=== PATIENT | female | born 1990 | race Two or more races ===

== ENCOUNTER 2018-12-10 11:01 | Emergency (ER) | payer MEDICAID ==
[2018-12-10 11:16] VITALS: BP 119/73
[2018-12-10] MEDS ORDERED: LIDOCAINE 2% VISCOUS SOLN 20 ML UDCUP PO ONE (12:06)
[2018-12-10] MEDS ORDERED: PROCHLORPERAZINE MALEATE 10 MG TABLET PO ONE (12:06)
[2018-12-10] MEDS ORDERED: IBUPROFEN 600 MG TABLET PO ONE (12:06)
[2018-12-10] MEDS ORDERED: PENICILLIN V POTASSIUM 500 MG TABLET PO ONE (12:06)
--- NOTE | 2018-12-10 12:18 | ER Document Report ---
HPI - HPI Time Seen by Provider: 12/10/18 11:55 Pain Level: 5 Notes: Patient is a 28-year-old female who presents to the emergency department with chief complaint of dental pain and headache. Patient reports fractured teeth on the right lower and left lower sides of her mouth, states this occurred in April. Patient also reports history of migraines. Patient states the pain in her teeth is making her have more frequent migraines. Denies any fevers. - REPRODUCTIVE Reproductive: DENIES: : - DERM Skin Color: Normal Past Medical History - General Information source: Patient - Social History Smoking Status: Current Every Day Smoker Frequency of alcohol use: Occasional Drug Abuse: None Family History: Reviewed & Not Pertinent Patient has suicidal ideation: No Patient has homicidal ideation: No Neurological Medical History: Reports: Hx Migraine Renal/ Medical History: Reports: Hx Kidney Stones. Denies: Hx Peritoneal Dialysis Past Surgical History: Reports: Hx Tonsillectomy - Immunizations Hx Diphtheria, Pertussis, Tetanus Vaccination: Yes Vertical Provider Document - CONSTITUTIONAL Notes: PHYSICAL EXAMINATION: GENERAL: Well-appearing, well-nourished and in no acute distress. HEAD: Atraumatic, normocephalic. EYES: Pupils equal round extraocular movements intact, conjunctiva are normal. ENT: Nares patent, poor dentition noted throughout. Specifically tooth #30, 31, 19 and 18 are completely rotted out with surrounding erythema. No drainable abscess identified. NECK: Normal range of motion LUNGS: No respiratory distress Musculoskeletal: Normal range of motion NEUROLOGICAL: Normal speech, normal gait. PSYCH: Normal mood, normal affect. SKIN: Warm, Dry, normal turgor, no rashes or lesions noted. - INFECTION CONTROL TRAVEL OUTSIDE OF THE [place] IN LAST 30 DAYS: No Course - Re-evaluation Re-evalutation: Patient appears to have a dental infection. There is no drainable abscess. Patient will be started on penicillin VK and discharged home in stable condition. - Vital Signs Vital signs: Temp Pulse Resp BP Pulse Ox 98.2 F 126 H 18 119/73 98 12/10/18 11:14 12/10/18 11:14 12/10/18 11:14 12/10/18 11:14 12/10/18 11:14 Discharge - Discharge Clinical Impression: Dental infection Headache Qualifiers: Headache type: unspecified Headache chronicity pattern: chronic headache Intractability: not intractable Qualified Code(s): R51 - Headache Condition: Stable Disposition: HOME, SELF-CARE Additional Instructions: You have been seen for dental pain. It is very important that you follow-up with a dentist for definitive care. Please return if you develop fever greater than 101, swelling in your face, vomiting, difficulty breathing or swallowing, or any other symptoms that are concerning to you. For pain you should take ibuprofen 800 mg every 8 hours as needed. [facility] [address] Prescriptions: Penicillin V Potassium [Penicillin Vk 500 mg Tablet] 500 mg PO BID #20 tablet Referrals: GILBERTO TAFOYA MD [ACTIVE STAFF] - Follow up as needed
== END 2018-12-10 12:24 | disposition home or self-care (01) ==
LOC: ER 11:01
DX: K04.7 Periapical abscess without sinus (principal); R51 Headache; K08.89 Other specified disorders of teeth and supporting structures; Z86.69 Personal history of other diseases of the nervous system and sense organs; F17.200 Nicotine dependence, unspecified, uncomplicated
CPT/HCPCS: 99283; J3490 ×3; S0183

== ENCOUNTER 2018-12-20 09:01 | Emergency (ER) | payer SELFPAY ==
--- NOTE | 2018-12-20 10:28 | RADIOLOGY REPORT (SQ) ---
EXAM DESCRIPTION: KNEE RIGHT 4 VIEWS COMPLETED DATE/TIME: 12/20/2018 10:14 am REASON FOR STUDY: pain COMPARISON: None. NUMBER OF VIEWS: Four views. TECHNIQUE: AP, lateral, and both oblique radiographic images acquired of the right knee. LIMITATIONS: None. FINDINGS: MINERALIZATION: Normal. BONES: No acute fracture or dislocation. No worrisome bone lesions. JOINT: Moderate joint effusion is present. SOFT TISSUES: No soft tissue swelling. No radio-opaque foreign body. OTHER: No other significant finding. IMPRESSION: Joint effusion with no osseous abnormality. If there is concern for internal derangemen t, consider MRI. TECHNICAL DOCUMENTATION: JOB ID: [id number] [employer]- All Rights Reserved Reading location - IP/workstation name: [email or web address]
[2018-12-20] MEDS ORDERED: ACETAMINOPHEN 325 MG TABLET PO ONE (10:47)
--- NOTE | 2018-12-20 10:52 | ER Document Report ---
HPI - HPI Patient complains to provider of: Right knee pain Time Seen by Provider: 12/20/18 09:34 Pain Level: 4 Context: Patient is a 28-year-old female presents to the emergency department with right knee pain and swelling. Patient states she feels as though she has had right knee pain and swelling intermittently for the last 2 weeks. She is denying any history of trauma or injury. Patient states for the last 2 days she has noticed that her knee has been increasing in size which is what prompts her visit to the emergency room. Patient states she typically is very active and if there is a chance that she did hurt her right knee patient cannot recall any obvious injuries. Patient's denying fever, redness, warmth to the right knee. Patient's denying any history of IV drug use. Past medical history: None Medications: None Allergies: None - REPRODUCTIVE Reproductive: DENIES: : - MUSCULOSKELETAL Musculoskeletal: REPORTS: Extremity pain Past Medical History - General Information source: Patient - Social History Smoking Status: Current Every Day Smoker Family History: Reviewed & Not Pertinent Patient has suicidal ideation: No Patient has homicidal ideation: No Neurological Medical History: Reports: Hx Migraine Renal/ Medical History: Reports: Hx Kidney Stones. Denies: Hx Peritoneal Dialysis Past Surgical History: Reports: Hx Tonsillectomy - Immunizations Hx Diphtheria, Pertussis, Tetanus Vaccination: Yes Vertical Provider Document - CONSTITUTIONAL Agree With Documented VS: Yes Notes: GENERAL: Alert, interacts well. No acute distress. HEAD: Normocephalic, atraumatic. EYES: Pupils equal, round, and reactive to light. Extraocular movements intact. ENT: Oral mucosa moist, tongue midline. NECK: Full range of motion. Supple. Trachea midline. LUNGS: Clear to auscultation bilaterally, no wheezes, rales, or rhonchi. No respiratory distress. HEART: Regular rate and rhythm. No murmur ABDOMEN: Soft, non-tender. Non-distended. Bowel sounds present in all 4 quadrants. EXTREMITIES: Moves all 4 extremities spontaneously. normal radial and dorsalis pedis pulses bilaterally. No cyanosis. Swelling noted right knee, skin is non- erythematous, non-warm. Anterior drawer reveals no pain, valgus and varus maneuvers elicit pain equally. 5 out of 5 strength all 4 extremities. BACK: no cervical, thoracic, lumbar midline tenderness. No saddle anesthesia, normal distal neurovascular exam. NEUROLOGICAL: Alert and oriented x3. Normal speech. cranial nerves II through XII grossly intact PSYCH: Normal affect, normal mood. SKIN: Warm, dry, normal turgor. No rashes or lesions noted. - INFECTION CONTROL TRAVEL OUTSIDE OF THE [place] IN LAST 30 DAYS: No Course - Re-evaluation Re-evalutation: 12/20/18 10:49 Patient's x-ray reveals signs of an effusion. Patient's skin continues to be nonerythematous and non-warm. I do not feel as though this is an infectious process. Patient is without fever. Knee immobilizer placed, patient states she does not have insurance, phone numbers for [facility] in [facility] will be provided. Close return precautions discussed. Patient stable for discharge. - Vital Signs Vital signs: Temp Pulse Resp BP Pulse Ox 98.3 F 105 H 16 115/67 98 12/20/18 09:13 12/20/18 09:13 12/20/18 09:13 12/20/18 09:13 12/20/18 09:13 Discharge - Discharge Clinical Impression: Right knee pain Qualifiers: Chronicity: acute Qualified Code(s): M25.561 - Pain in right knee Condition: Stable Disposition: HOME, SELF-CARE Instructions: Use of Crutches ([facility]), Suspected Internal Knee Injury ([facility]), Ice & Elevation ([facility]), Knee Immobilizing Splint ([facility]), Sprained Knee ([facility]) Additional Instructions: As we discussed your knee x-ray reveals no signs of fractures. It does reveal signs of inflammation. Due to the skin being normal in color, not red, not warm to touch I do not feel as though this is an infectious process. Should the skin around her knee gets warm to touch, red, or you have any other concerning symptoms please return to the emergency room immediately. Otherwise please follow-up with phone numbers provided in this packet. Please take [id number] Tylenol Motrin for generalized pain. Forms: Return to Work Referrals: [facility] [Provider Group] - Follow up as needed [facility] [Provider Group] - Follow up as needed
[2018-12-20 11:04] VITALS: BP 113/81
== END 2018-12-20 11:00 | disposition home or self-care (01) ==
LOC: ER 09:01
DX: M25.561 Pain in right knee (principal); F17.200 Nicotine dependence, unspecified, uncomplicated; Z87.442 Personal history of urinary calculi
CPT/HCPCS: 99283; 73564; L1830

== ENCOUNTER 2019-09-09 18:45 | Inpatient (IN) | payer SELFPAY ==
[2019-09-09 19:19] LABS: APPEARANCE,URINE CLEAR; BILIRUBIN,URINE NEGATIVE (NEGATIVE); COLOR,URINE YELLOW; GLUCOSE, URINE NEGATIVE (NEGATIVE); KETONES,URINE NEGATIVE (NEGATIVE); LEUKOCYTE ESTERASE,URINE NEGATIVE (NEGATIVE); NITRITE,URINE NEGATIVE (NEGATIVE); PROTEIN,URINE 100 mg/dL (NEGATIVE); UROBILINOGEN,URINE NEGATIVE mg/dL (<2.0)
[2019-09-09 19:20] LABS: BACTERIA (WET MOUNT) 4+ BACTERIA SEEN; EPITHELIALS (WET MOUNT) 4+ EPITHELIALS SEEN; RBCS (WET MOUNT) FEW RBCS SEEN; T.VAGINALIS (WET MOUNT) NO TRICHOMONAS SEEN; WBCS (WET MOUNT) 4+ WBCS SEEN; YEAST (WET MOUNT) NO YEAST SEEN
[2019-09-09 19:34] LABS: URINE AMPHETAMINES SCREEN NEGATIVE; URINE BARBITURATES SCREEN NEGATIVE; URINE BENZODIAZEPINES SCREEN NEGATIVE; URINE COCAINE SCREEN NEGATIVE; URINE METHADONE SCREEN NEGATIVE; URINE PHENCYCLIDINE SCREEN NEGATIVE
[2019-09-09] MEDS ORDERED: MAGNESIUM SULFATE 20 GM/500 ML RTUINJ IV PRN (19:39)
[2019-09-09] MEDS ORDERED: RINGERS SOLUTION,LACTATED 1,000 ML IV PRN (19:40)
[2019-09-09 19:43] LABS: ABSOLUTE LYMPHOCYTES (AUTO) 2.4 10^3/uL (0.5-4.7); ABSOLUTE MONOCYTES (AUTO) 0.7 10^3/uL (0.1-1.4); ABSOLUTE NEUT (AUTO) 10.6 10^3/uL (1.7-8.2); BASOPHILS % (AUTO) 0.3 % (0-2); EOSINOPHILS % (AUTO) 0.3 % (0-6); HEMATOCRIT 36.9 % (36.0-47.0); HEMOGLOBIN 12.6 g/dL (12.0-15.5); LYMPHOCYTES % (AUTO) 17.3 % (13-45); MEAN CORPUSCULAR HEMOGLOBIN 29.4 pg (27.0-33.4); MEAN CORPUSCULAR HGB CONC 34.1 g/dL (32.0-36.0); MEAN CORPUSCULAR VOLUME 86 fl (80-97); MONOCYTES % (AUTO) 5.4 % (3-13); PLATELET COUNT 265 10^3/uL (150-450); RED BLOOD COUNT 4.28 10^6/uL (3.72-5.28); RED CELL DISTRIBUTION WIDTH 14.6 % (11.5-14.0); SEGMENTED NEUTROPHILS % (AUTO) 76.7 % (42-78); TOTAL CELLS COUNTED % (AUTO) 100 %; WHITE BLOOD COUNT 13.8 10^3/uL (4.0-10.5)
[2019-09-09] MEDS ORDERED: MAGNESIUM SULFATE/D5W 1 GM/100 ML RTUPB IV SCH (19:45)
[2019-09-09 19:52] LABS: URINE MARIJUANA (THC) SCREEN UNCONFIRMED POSITIVE
[2019-09-09] MEDS ORDERED: TERBUTALINE SULFATE INJ/PF 1 MG/1 ML SDV ONE (19:53)
[2019-09-09] MEDS ORDERED: PENICILLIN G-K 5 MILLION UNIT VIAL ONE (19:53)
[2019-09-09] MEDS ORDERED: BETAMET ACET/BETAMET NA INJ 6 MG/1 ML ONE (19:55)
[2019-09-09] MEDS ORDERED: BETAMET ACET/BETAMET NA INJ 6 MG/1 ML IM ONE (20:00)
[2019-09-09] MEDS ORDERED: MAGNESIUM SULFATE 4 GM/100 ML RTUPB IV ONE ×2 (20:00)
[2019-09-09] MEDS ORDERED: RINGERS SOLUTION,LACTATED 1,000 ML IV ONE (20:00)
[2019-09-09] MEDS ORDERED: PENICILLIN G POTASSIUM 5,000,000 UNIT in DEXTROSE 5%-WATER 100 ML IV ONE (20:00)
[2019-09-09] MEDS ORDERED: LIDOCAINE 1% INJ-PF (10 MG/ML) 30 ML SDV ONE (20:06)
[2019-09-09] MEDS ORDERED: OXYTOCIN/NORMAL SALINE 20 UNIT/1,000 ML RTUINJ ONE (20:06)
[2019-09-09] MEDS ORDERED: MISOPROSTOL 0.2 MG TABLET ONE (20:06)
[2019-09-09] MEDS ORDERED: OXYTOCIN 10 UNIT/ML VIAL ONE (20:06)
[2019-09-09] MEDS ORDERED: EPHEDRINE SULFATE INJ 50 MG/1 ML AMPULE ONE (20:18)
--- NOTE | 2019-09-09 20:18 | Admission Physical ---
Datetime Report Generated by CPN: 09/09/2019 20:18 CURRENT ADMISSION Chief Complaint: Uterine Contractions; Suspected Ruptured Membranes Indication for Induction: Not Applicable Admit Impression : , Intrauterine ; Active Labor Admit Impression- Other: suspect ruptured membranes Admit Plan: Admit to Unit; Initiate Labor Protocol ALLERGIES Medication Allergies: No Medication Allergies: No Known Allergies (12/20/2018) Latex: No Latex Allergies OBSTETRICAL HISTORY EDC: 10/24/2019 00:00 : 5 Para: 2 Term: 2 SAB: 2 SEE RECORDS Alcohol: No Cocaine: No Other Illicit Drugs: No Cigarettes: Current Some Day Smoker. [id number] Cigarette Frequency: 5 - 10 per day Advised to Stop: Yes PHYSICAL EXAM General: Normal HEENT: Normal Neurologic: Normal Thyroid: Deferred Heart: Normal Lungs: Normal Breast: Deferred Back: Normal Abdomen: Normal Genitourinary Exam: Normal Extremities: Normal DTRs: Normal Pelvic Type: Adequate Vital Signs: Reviewed VAGINAL EXAM Dilatation: 5 Effacement: 80 Station: bb Contraction Comments: q 2-3 MEMBRANES Membranes: Intact FETUS A EGA: 33.4 Monitoring: External US FHR- Baseline: 125 Variability: Moderate 6-25bpm Accelerations: 15X15 Decelerations: None FHR Category: Category I Presentation: Vertex Admit Comment: 29yo at probable 33+4 by reported ANGELIQUE 10/24/2019 (she reports that was given to her by HD in [place] based on LMP). Pt was brought in by EMS and reported no prental care. SHe reports that she is homeless then later reported she lives with Aunt - story is changing. urban and regional planner placed due to no prental care and story is suspect. Pt checked by RN and 5cm/bb. Magnesium sulfate due to suspected 33wks and neuroprotection, Celestone given for FLM. Pt now in Hands and knees - cvx now /bb. US ordered to evaluate EGA. PCN for GBS prophy and no care labs done. Pt reports that she had a term IOL at 41wks and a PPROM at delivery at 30wks. Nursery and NICU personel notified. Anticipate . Bedside quick US by myself confirmed vertex presentation INFORMED CONSENT Informed Consent Obtained: Vaginal Delivery; Risks, Benefits and Alternatives Discussed Signature: with User ID: [email or web address]
[2019-09-09] MEDS ORDERED: FENTANYL/BUPIVACAINE/NS/PF 300 MCG/150 ML RTUINJ EPI ONE (20:19)
[2019-09-09] MEDS ORDERED: BUPIVACAINE HCL 0.25 % INJ/PF (2.5 MG/1 ML) 30 ML VIAL ONE (20:19)
[2019-09-09] MEDS ORDERED: MAGNESIUM SULFATE 20 GM/500 ML RTUINJ IV ONE (20:23)
[2019-09-09 20:43] LABS: CHLAM PCR DETECTED (NOT DETECT)
[2019-09-09] MEDS ORDERED: AZITHROMYCIN INJ 500 MG VIAL IV PRN (20:50)
[2019-09-09] MEDS ORDERED: AZITHROMYCIN INJ 500 MG VIAL IV ONE (20:50)
[2019-09-09] MEDS ORDERED: CEFTRIAXONE INJ 1000 MG VIAL ONE (20:51)
--- NOTE | 2019-09-09 21:00 | RADIOLOGY REPORT (SQ) ---
US LIMITED CLINICAL DATA: for dating, , no care. TECHNICAL DATA: Transabdominal limited OB ultrasound was obtained for a total of 25 images. FINDINGS: A single intrauterine is identified in a vertex presentation. A heart rate is measured at 145 bpm. The placenta is anterior, no previa or abruption. The amniotic fluid index measures 10.7 cm. The BPD gives an EGA of 35 weeks zero days, head circumference 34 weeks six days, abdominal circumference 35 weeks six days, and femur length 34 weeks three days. The estimated weight is 2633 g or 5 lbs. 13 oz. IMPRESSION: Single viable intrauterine in a vertex presentation with an anterior placenta, adequate amniotic fluid volume, EFW of 2633 g, and composite EGA by ultrasound of 35 weeks 0 days giving an EDC on 10/14/2019.
[2019-09-09] MEDS ORDERED: CEFTRIAXONE 1 GM/D5W RTU 1 GM/50 ML RTUPB IV ONE (21:30)
[2019-09-09 21:50] LABS: FREE T4 (FREE THYROXINE) 1.02 ng/dL (0.78-2.19)
[2019-09-09 21:51] LABS: FREE T3 2.42 pg/mL (2.77-5.27)
[2019-09-09] MEDS ORDERED: AZITHROMYCIN 500 MG in DEXTROSE 5%-WATER 250 ML IV ONE (22:00)
[2019-09-09] MEDS ORDERED: BENZOCAINE/MENTHOL AEROSOL SPRAY 56 ML TOP PRN (23:32)
[2019-09-09] MEDS ORDERED: PSEUDOEPHEDRINE HCL 30 MG TABLET PO PRN (23:32)
[2019-09-09] MEDS ORDERED: DIPHENHYDRAMINE HCL 25 MG CAPSULE PO PRN (23:32)
[2019-09-09] MEDS ORDERED: PROMETHAZINE HCL 25 MG TABLET PO PRN (23:32)
[2019-09-09] MEDS ORDERED: NA PHOS,M-B/NA PHOS,DI-BA (ADULT) 133 ML ENEMA PR PRN (23:32)
[2019-09-09] MEDS ORDERED: MISOPROSTOL 0.2 MG TABLET PR PRN (23:32)
[2019-09-09] MEDS ORDERED: ACETAMINOPHEN 325 MG TABLET PO PRN (23:32)
[2019-09-09] MEDS ORDERED: MEASLES,MUMPS&RUBELLA VACC/PF 0.5 ML VIAL SUBCUT PRN (23:32)
[2019-09-09] MEDS ORDERED: PROMETHAZINE HCL INJ 25 MG/1 ML VIAL IV PRN (23:32)
[2019-09-09] MEDS ORDERED: ACETAMINOPHEN WITH CODEINE #3 TABLET PO PRN (23:32)
[2019-09-09] MEDS ORDERED: DIPH/PERTUSS(ACELL)/TETANUS VAC/PF 0.5 ML SYR (>=10YO) IM PRN (23:32)
[2019-09-09] MEDS ORDERED: GLYCERIN/WITCH HAZEL LEAF 1 EACH MED..WIPE TP PRN (23:32)
[2019-09-09] MEDS ORDERED: MAGNESIUM HYDROXIDE SUSP 30 ML UDCUP PO PRN (23:32)
[2019-09-09] MEDS ORDERED: PROMETHAZINE HCL 25 MG SUPP.RECT PR PRN (23:32)
[2019-09-09] MEDS ORDERED: ZOLPIDEM TARTRATE 5 MG TABLET PO PRN (23:32)
[2019-09-09] MEDS ORDERED: DIBUCAINE 1% OINTMENT 28 GM TP PRN (23:32)
[2019-09-09] MEDS ORDERED: OXYTOCIN/NORMAL SALINE 20 UNIT/1,000 ML RTUINJ IV PRN (23:32)
[2019-09-10] MEDS ORDERED: PENICILLIN G POTASSIUM 2,500,000 UNIT in DEXTROSE 5%-WATER 50 ML IV SCH ×2
[2019-09-10] MEDS ORDERED: IBUPROFEN 800 MG TABLET ONE (00:42)
--- NOTE | 2019-09-10 01:15 | Delivery Summary ---
Del Sum A-C Datetime Report Generated by CPN: 09/10/2019 01:15 DELIVERY PERSONNEL DELIVERY PERSONNEL: [id number] Delivery Doctor:: Miriam Jean MD Anesthesiologist:: Sean Dasilva MD Labor and Delivery Nurse:: Berta Lara RNsuperintendent meter tests Nurse:: Justine Marquez RN Nursery Nurse:: CR Sy Tech/MILK INSPECTOR: Kayley Rodgers, ST MATERNAL INFORMATION Delivery Anesthesia: Epidural Medications After Delivery: Pitocin Drip 20 Units/1000ml NSS; Cytotec 1000mcg Per Rectum/Vagina Estimated Blood Loss (ml): 100 Delivery QBL: 100 Delivery QBL Comment: delivery 100 recovery 96 total 196 Maternal Complications: Precipitous Labor (<3hrs); Premature Rupture of Membranes; Other (Annotations: Data stored by CPN on behalf of user) Complication Details: no care, positive gc and chlam, positive marijuana Provider Comments: VMI delivered in [place] presentation. No nuchal cord. Significant amount of bloody amniotic fluid noted with delivery of baby. Shoulders and body delivered without difficulty. cord doubly clamped and cut and to maternal abdomen. No perineal lacerations. FF at U. Cytotec 1000mcg per rectum placed. Good hemostasis. Mother and baby stable upon provider leaving the room LABOR SUMMARY EDC: 10/24/2019 00:00 No. Babies in Womb: 1 Attempted: No Labor Anesthesia: Epidural LABOR INFORMATION Reason for Induction: Not Applicable Onset of Labor: 09/09/2019 18:00 Complete Dilatation: 09/09/2019 23:13 Oxytocin: N/A Group B Beta Strep: positive Antibiotics # of Doses: 1 of each Antibiotics Time of Last Dose: AAE=[id number], Lgsaomzklnu=038 Name of Antibiotic Given: PCN, Zithromax, Ceftriaxone Steroids Given: Partial Course; < 24 Hours before Delivery Reason Steroids Not Administered: Not Applicable MEMBRANES Membranes Rupture Method: Spontaneous Rupture of Membranes: 09/09/2019 19:55 Length of Rupture (hr): 3.43 Amniotic Fluid Color: Clear Amniotic Fluid Amount: Scant Amniotic Fluid Odor: Normal STAGES OF LABOR Stage 1 hr: 5 Stage 1 min: 13 Stage 2 hr: 0 Stage 2 min: 8 Stage 3 hr: 0 Stage 3 min: 4 Total Time in Labor hr: 5 Total Time in Labor min: 25 VAGINAL DELIVERY Episiotomy: None Laceration #1: None Laceration Extension #1: N/A Laceration Repair: Not Applicable Sponge Count Correct: Yes Sharps Count Correct: Yes CSECTION DELIVERY Primary Indication: N/A Secondary Indication: N/A CSection Incidence: N/A Labor: N/A Elective: N/A CSection Incision: N/A BABY A INFORMATION Delivery Date/Time: 09/09/2019 23:21 Method of Delivery: Vaginal Born in Route : No : N/A Forceps: N/A Vacuum Extraction: N/A Shoulder Dystocia : No PRESENTATION/POSITION BABY A Presentation: Cephalic Cephalic Presentation: Vertex Vertex Position: Right Occipital Anterior Breech Presentation: N/A PLACENTA INFORMATION BABY A Placenta Delivery Time : 09/09/2019 23:25 Placenta Method of Delivery: Spontaneous Placenta Status: Delivered SCORES BABY A Heart Rate 1 min: >100 bpm Resp Effort 1 min: Good Cry Reflex Irritability 1 min: Cough or Sneeze or Pulls Away Muscle Tone 1 min: Active Motion Color 1 min: Blue/Pale Resuscitation Effort 1 min: Tactile Stimulation SCORE 1 MIN: 8 Heart Rate 5 min: >100 bpm Resp Effort 5 min: Good Cry Reflex Irritability 5 min: Cough or Sneeze or Pulls Away Muscle Tone 5 min: Active Motion Color 5 min: Body [place], Extremities Blue Resuscitation Effort 5 min: Tactile Stimulation SCORE 5 MIN: 9 INFANT INFORMATION BABY A Gestational Age at Delivery: 33.4 Gestational Status: - <34 Weeks Infant Outcome : Liveborn Condition : Stable Infant Sex: Male IDENTIFICATION BABY A Verification Date/Time: 09/09/2019 23:35 ID Band Number: [id number] Mother's Name Verified: Yes RN Verifying : CKayla Ríos, RN and JKayla Izquierdo, RN WEIGHT/LENGTH BABY A Birthweight (gm): 2640 Weight (lb): 5 Weight (oz): 13 Length (in): 19.00 Length (cm): 48.26 CORD INFORMATION BABY A No. Cord Vessels: 3 Nuchal Cord : N/A Cord Blood Taken: Yes-For Eval (Mom's Blood Type - or O+) Suction: Mouth; Nose ASSESSMENT BABY A Skin to Skin: Yes Skin to Skin Time (min): 40 BABY B INFORMATION : N/A SIGNATURES Signature: with User ID: [email or web address]
[2019-09-10] MEDS: FAMOTIDINE 20 MG TABLET PO SCH ×3 (01:51→21:59)
[2019-09-10] MEDS ORDERED: INFLUENZA QUAD (6MOS+) 2019-20 VAC 0.5 ML SYR IM ONE (02:16)
[2019-09-10] MEDS: IBUPROFEN 800 MG TABLET PO SCH ×3 (07:02→21:58)
[2019-09-10 07:03] LABS: HEMATOCRIT 34.2 % (36.0-47.0); HEMOGLOBIN 11.8 g/dL (12.0-15.5); MEAN CORPUSCULAR HEMOGLOBIN 29.6 pg (27.0-33.4); MEAN CORPUSCULAR HGB CONC 34.3 g/dL (32.0-36.0); MEAN CORPUSCULAR VOLUME 86 fl (80-97); PLATELET COUNT 271 10^3/uL (150-450); RED BLOOD COUNT 3.97 10^6/uL (3.72-5.28); RED CELL DISTRIBUTION WIDTH 14.8 % (11.5-14.0); WHITE BLOOD COUNT 22.4 10^3/uL (4.0-10.5)
[2019-09-10] MEDS ORDERED: PIPERACILLIN/TAZOBACTAM 3.375 GM VIAL IV SCH (07:45)
[2019-09-10] MEDS ORDERED: AZITHROMYCIN 1 GM SUSP PACKET PO ONE (08:30)
[2019-09-10] MEDS: ACETAMINOPHEN WITH CODEINE #3 TABLET PO PRN ×2 (08:44→18:17)
--- NOTE | 2019-09-10 10:24 | PDOC PROGRESS REPORT ---
Subjective-OB Progress Note for:: 09/10/19 - PP Day #1, doing well, Hx +GC/ +chlamydia this admission, treated. +THC, No PNC. AB negative, will need Rhogam prior to discharge Physical Exam (OB) Vital Signs: Temp Pulse Resp BP Pulse Ox 98.7 F 70 16 105/64 97 09/10/19 07:21 09/10/19 07:21 09/10/19 07:21 09/10/19 07:21 09/10/19 07:21 Intake & Output 09/09/19 09/10/19 09/11/19 06:59 06:59 06:59 Weight 60 kg - General General Appearance: Appears well, Alert In distress: None - PIH/Pre-Eclampsia DTR's: 1 + Clonus: Negative Headache: Absent Epigastric Pain: No Visual Changes: No - Lochia Lochia Amount: Moderate 25-50 ml Lochia Color: Rubra/Red - Abdomen Description: Soft Hernia Present: No Fundal Description: Firm, Midline Fundal Height: u/u - u/2 - Respiratory Respiratory Status: No respiratory distress - Abdominal Inspection: Normal Distension: No distension Tenderness: Nontender - Genitourinary Genitourinary Note: voiding - Extremities Upper extremity: Normal inspection Lower extremities: Normal inspection - Neurological Cognition: Normal Orientation: AAOx4 - Psychological Associated symptoms: Normal affect, Normal mood - Skin Skin Temperature: Warm, Hot Objective-Diagnostic Laboratory: 09/10/19 06:23 09/09/19 09/09/19 09/09/19 18:51 19:22 19:22 WBC 13.8 H RBC 4.28 Hgb 12.6 Hct 36.9 MCV 86 MCH 29.4 MCHC 34.1 RDW 14.6 H Plt Count 265 Seg Neutrophils % 76.7 TSH Free T4 Free T3 pg/mL Urine Color YELLOW Urine Appearance CLEAR Urine pH 8.0 Ur Specific [place] 1.010 Urine Protein 100 H Urine Glucose (UA) NEGATIVE Urine Ketones NEGATIVE Urine Blood SMALL H Urine Nitrite NEGATIVE Ur Leukocyte Esterase NEGATIVE Urine WBC (Auto) 0 Urine RBC (Auto) 7 Blood Type AB NEGATIVE Antibody Screen NEGATIVE 09/09/19 09/09/19 09/10/19 19:22 19:22 06:23 WBC 22.4 H RBC 3.97 Hgb 11.8 L Hct 34.2 L MCV 86 MCH 29.6 MCHC 34.3 RDW 14.8 H Plt Count 271 Seg Neutrophils % TSH 0.09 L Free T4 1.02 Free T3 pg/mL 2.42 L Urine Color Urine Appearance Urine pH Ur Specific [place] Urine Protein Urine Glucose (UA) Urine Ketones Urine Blood Urine Nitrite Ur Leukocyte Esterase Urine WBC (Auto) Urine RBC (Auto) Blood Type Antibody Screen 09/10/19 06:23 WBC RBC Hgb Hct MCV MCH MCHC RDW Plt Count Seg Neutrophils % TSH Free T4 Free T3 pg/mL Urine Color Urine Appearance Urine pH Ur Specific [place] Urine Protein Urine Glucose (UA) Urine Ketones Urine Blood Urine Nitrite Ur Leukocyte Esterase Urine WBC (Auto) Urine RBC (Auto) Blood Type AB NEGATIVE Antibody Screen Assessment and Plan(PN) - Assessment and Plan (1) Tetrahydrocannabinol (THC) use disorder, mild, abuse Is this a current diagnosis for this admission?: Yes (2) Chlamydia infection affecting Qualifiers: Trimester: third trimester Qualified Code(s): O98.813 - Other maternal infectious and parasitic diseases complicating , third trimester; A74.9 - Chlamydial infection, unspecified Is this a current diagnosis for this admission?: Yes (3) Gonorrhea affecting Qualifiers: Trimester: third trimester Qualified Code(s): O98.213 - Gonorrhea complicating , third trimester Is this a current diagnosis for this admission?: Yes (4) Homeless Is this a current diagnosis for this admission?: Yes (5) No care in current Qualifiers: Trimester: third trimester Qualified Code(s): O09.33 - Supervision of [facility] with insufficient care, third trimester Is this a current diagnosis for this admission?: Yes (6) Precipitate labor, delivered, current hospitalization Is this a current diagnosis for this admission?: Yes (7) premature rupture of membranes Qualifiers: PROM onset of labor timing: onset of labor within 24 hours of rupture Qualified Code(s): O42.019 - premature rupture of membranes, onset of labor within 24 hours of rupture, unspecified trimester Is this a current diagnosis for this admission?: Yes (8) Rh negative status during Qualifiers: Trimester: unspecified trimester Qualified Code(s): O26.899 - Other spec ified related conditions, unspecified trimester; Z67.91 - Unspecified blood type, Rh negative Is this a current diagnosis for this admission?: Yes (9) Smoker Is this a current diagnosis for this admission?: Yes Plan:: Needs manufacturing planner, Routine PP orders - Time Spent with Patient Time with patient: Less than 15 minutes Medications reviewed and adjusted accordingly: Yes - Disposition Anticipated Discharge: Home Within: within 24 hours
[2019-09-10] MEDS: DOCUSATE SODIUM 100 MG CAPSULE PO SCH ×2 (11:43→18:12)
[2019-09-10] MEDS: SENNOSIDES/DOCUSATE 8.6-50 MG 1 EACH TABLET PO SCH (11:43)
[2019-09-10] MEDS: FERROUS SULFATE 325 MG TABLET PO SCH ×2 (11:43→18:12)
[2019-09-10] MEDS: PRENATAL VITAMIN W DHA CAPSULE PO SCH (11:43)
[2019-09-10] MEDS: PIPERACILLIN SODIUM/TAZOBACTAM 3.375 GM in NORMAL SALINE 100 ML IV SCH ×2 (12:53→18:12)
[2019-09-10] MEDS ORDERED: FAMOTIDINE 20 MG TABLET ONE (21:17)
[2019-09-11] MEDS: PIPERACILLIN SODIUM/TAZOBACTAM 3.375 GM in NORMAL SALINE 100 ML IV SCH (00:42)
[2019-09-11] MEDS: IBUPROFEN 800 MG TABLET PO SCH ×2 (05:45→14:55)
[2019-09-11] MEDS: ACETAMINOPHEN WITH CODEINE #3 TABLET PO PRN (05:58)
[2019-09-11 07:37] LABS: HEPATITIS C VIRUS AB <0.1 s/co ratio (0.0-0.9)
[2019-09-11] MEDS: DOCUSATE SODIUM 100 MG CAPSULE PO SCH (09:20)
[2019-09-11] MEDS: FERROUS SULFATE 325 MG TABLET PO SCH (09:20)
[2019-09-11] MEDS: PRENATAL VITAMIN W DHA CAPSULE PO SCH (09:20)
[2019-09-11] MEDS: SENNOSIDES/DOCUSATE 8.6-50 MG 1 EACH TABLET PO SCH (09:20)
[2019-09-11] MEDS: FAMOTIDINE 20 MG TABLET PO SCH (09:21)
[2019-09-11 09:27] LABS: HEPATITS B SURFACE ANTIGEN Negative (Negative)
--- NOTE | 2019-09-11 09:40 | PDOC DISCHARGE SUMMARY ---
Impression - Admit/DC Date/PCP Admission Date/Primary Care Provider: 09/09/19 19:39 Discharge Date: 09/11/19 - Discharge Diagnosis (1) Chlamydia infection affecting Is this a current diagnosis for this admission?: Yes (2) Gonorrhea affecting Is this a current diagnosis for this admission?: Yes (3) Homeless Is this a current diagnosis for this admission?: Yes (4) No care in current Is this a current diagnosis for this admission?: Yes (5) Precipitate labor, delivered, current hospitalization Is this a current diagnosis for this admission?: Yes (6) premature rupture of membranes Is this a current diagnosis for this admission?: Yes (7) Rh negative status during Is this a current diagnosis for this admission?: Yes (8) Tetrahydrocannabinol (THC) use disorder, mild, abuse Is this a current diagnosis for this admission?: Yes (9) Smoker Is this a current diagnosis for this admission?: Yes - Additional Information Resuscitation Status: Full Code Discharge Diet: Regular Discharge Activity: Balance Activity w/Rest, Pelvic Rest Prescriptions: Ibuprofen [Motrin 800 mg Tablet] 800 mg PO Q8HP PRN #60 tablet PRN Reason: Home Medications: Ibuprofen [Motrin 800 mg Tablet] 800 mg PO Q8HP PRN #60 tablet 09/11/19 Results Laboratory Results: WBC 22.4 10^3/uL (4.0-10.5) H 09/10/19 06:23 RBC 3.97 10^6/uL (3.72-5.28) 09/10/19 06:23 Hgb 11.8 g/dL (12.0-15.5) L 09/10/19 06:23 Hct 34.2 % (36.0-47.0) L 09/10/19 06:23 MCV 86 fl (80-97) 09/10/19 06:23 MCH 29.6 pg (27.0-33.4) 09/10/19 06:23 MCHC 34.3 g/dL (32.0-36.0) 09/10/19 06:23 RDW 14.8 % (11.5-14.0) H 09/10/19 06:23 Plt Count 271 10^3/uL (150-450) 09/10/19 06:23 Lymph % (Auto) 17.3 % (13-45) 09/09/19 19:22 [place] % (Auto) 5.4 % (3-13) 09/09/19 19:22 Eos % (Auto) 0.3 % (0-6) 09/09/19 19:22 Baso % (Auto) 0.3 % (0-2) 09/09/19 19:22 Absolute Neuts (auto) 10.6 10^3/uL (1.7-8.2) H 09/09/19 19:22 Absolute Lymphs (auto) 2.4 10^3/uL (0.5-4.7) 09/09/19 19:22 Absolute Monos (auto) 0.7 10^3/uL (0.1-1.4) 09/09/19 19: Absolute Eos (auto) 0.0 10^3/uL (0.0-0.6) 09/09/19 19: Absolute Basos (auto) 0.0 10^3/uL (0.0-0.2) 09/09/19 19: Seg Neutrophils % 76.7 % (42-78) 09/09/19 19:22 TSH 0.09 uIU/mL (0.47-4.68) L 09/09/19 19:22 Free T4 1.02 ng/dL (0.78-2.19) 09/09/19 19:22 Free T3 pg/mL 2.42 pg/mL (2.77-5.27) L 09/09/19 19:22 Urine Color YELLOW 09/09/19 18:51 Urine Appearance CLEAR 09/09/19 18:51 Urine pH 8.0 (5.0-9.0) 09/09/19 18:51 Ur Specific [place] 1.010 09/09/19 18:51 Urine Protein 100 mg/dL (NEGATIVE) H 09/09/19 18:51 Urine Glucose (UA) NEGATIVE mg/dL (NEGATIVE) 09/09/19 18:51 Urine Ketones NEGATIVE mg/dL (NEGATIVE) 09/09/19 18:51 Urine Blood SMALL (NEGATIVE) H 09/09/19 18:51 Urine Nitrite NEGATIVE (NEGATIVE) 09/09/19 18:51 Urine Bilirubin NEGATIVE (NEGATIVE) 09/09/19 18:51 Urine Urobilinogen NEGATIVE mg/dL (<2.0) 09/09/19 18:51 Ur Leukocyte Esterase NEGATIVE (NEGATIVE) 09/09/19 18:51 Urine WBC (Auto) 0 /HPF 09/09/19 18:51 Urine RBC (Auto) 7 /HPF 09/09/19 18:51 Squamous Epi Cells Auto <1 /HPF 09/09/19 18:51 Urine Mucus (Auto) RARE /LPF 09/09/19 18:51 Urine Ascorbic Acid NEGATIVE (NEGATIVE) 09/09/19 18:51 Membranes Rupture POSITIVE (NEGATIVE) H 09/09/19 19:55 Epi Cells (Wet Prep) 4+ EPITHELIALS SEEN 09/09/19 19:02 Bacteria (Wet Prep) 4+ BACTERIA SEEN 09/09/19 19:02 Trichomonas (Wet Prep) NO TRICHOMONAS SEEN 09/09/19 19:02 Vaginal WBC 4+ WBCS SEEN 09/09/19 19:02 Vaginal RBC FEW RBCS SEEN 09/09/19 19:02 Vaginal Yeast NO YEAST SEEN 09/09/19 19:02 Urine Opiates Screen NEGATIVE 09/09/19 18:51 Urine Methadone Screen NEGATIVE 09/09/19 18:51 Ur Barbiturates Screen NEGATIVE 09/09/19 18:51 Ur Phencyclidine Scrn NEGATIVE 09/09/19 18:51 Ur Amphetamines Screen NEGATIVE 09/09/19 18:51 U Benzodiazepines Scrn NEGATIVE 09/09/19 18:51 Urine Cocaine Screen NEGATIVE 09/09/19 18:51 U Marijuana (THC) Screen UNCONFIRMED POSITIVE 09/09/19 18:51 RPR NONREACTIVE (NONREACTIVE) 09/09/19 19:22 Chlamydia DNA (PCR) DETECTED (NOT DETECT) H 09/09/19 19:02 Hep Bs Antigen Negative (Negative) 09/09/19 19:22 Hepatitis C (JOHN) <0.1 s/co ratio (0.0-0.9) 09/09/19 19:22 Hep C Verif Com 1 Comment (.) 09/09/19 19:22 HIV 1&2 Antibody NEGATIVE (NEGATIVE) 09/09/19 19:22 N.gonorrhoeae DNA (PCR) DETECTED (NOT DETECT) H 09/09/19 19:02 Rubella IgG Antibody 29.50 IU/mL 09/09/19 19:22 Rubella IgG Ab Interp POSITIVE 09/09/19 19:22 Blood Type AB NEGATIVE 09/10/19 06:23 Antibody Screen NEGATIVE 09/09/19 19:22 Screen NEGATIVE 09/10/19 06:23 Impressions: Obstetrics Ultrasound 09/09/19 00:00 IMPRESSION: Single viable intrauterine in a vertex presentation with an anterior placenta, adequate amniotic fluid volume, EFW of 2633 g, and composite EGA by ultrasound of 35 weeks 0 days giving an EDC on 10/14/2019.
[2019-09-11 10:06] VITALS: BP 108/64
[2019-09-11 10:14] LABS: ABSOLUTE EOSINOPHILS # (AUTO) 0.1 10^3/uL (0.0-0.6); ABSOLUTE LYMPHOCYTES (AUTO) 3.6 10^3/uL (0.5-4.7); ABSOLUTE MONOCYTES (AUTO) 0.7 10^3/uL (0.1-1.4); ABSOLUTE NEUT (AUTO) 11.1 10^3/uL (1.7-8.2); BASOPHILS % (AUTO) 0.2 % (0-2); EOSINOPHILS % (AUTO) 0.5 % (0-6); HEMATOCRIT 34.4 % (36.0-47.0); HEMOGLOBIN 11.4 g/dL (12.0-15.5); MEAN CORPUSCULAR HEMOGLOBIN 29.3 pg (27.0-33.4); MEAN CORPUSCULAR HGB CONC 33.2 g/dL (32.0-36.0); MEAN CORPUSCULAR VOLUME 88 fl (80-97); MONOCYTES % (AUTO) 4.8 % (3-13); PLATELET COUNT 255 10^3/uL (150-450); RED CELL DISTRIBUTION WIDTH 14.7 % (11.5-14.0); SEGMENTED NEUTROPHILS % (AUTO) 71.5 % (42-78); TOTAL CELLS COUNTED % (AUTO) 100 %; WHITE BLOOD COUNT 15.5 10^3/uL (4.0-10.5)
== END 2019-09-11 15:25 | disposition home or self-care (01) | DRG 806 ==
LOC: LC 18:45 → LR 19:39 → 2S 09-10 01:47
PROVIDERS: ADMIT Student in an Organized Health Care Education/Training Program; ATTEND Student in an Organized Health Care Education/Training Program
PROC: 10E0XZZ Delivery of Products of Conception, External Approach (ICD-10-PCS; principal; 2019-09-09)
PROC: 3E0334Z Introduction of Serum, Toxoid and Vaccine into Peripheral Vein, Percutaneous Approach (ICD-10-PCS; 2019-09-11)
PROC: 3E02340 Introduction of Influenza Vaccine into Muscle, Percutaneous Approach (ICD-10-PCS; 2019-09-11)
DX: O42.019 Preterm premature rupture of membranes, onset of labor within 24 hours of rupture, unspecified trimester (principal); O36.0930 Maternal care for other rhesus isoimmunization, third trimester, not applicable or unspecified; Z37.0 Single live birth; O98.22 Gonorrhea complicating childbirth; O98.813 Other maternal infectious and parasitic diseases complicating pregnancy, third trimester; O99.334 Smoking (tobacco) complicating childbirth; F17.210 Nicotine dependence, cigarettes, uncomplicated; O99.824 Streptococcus B carrier state complicating childbirth; O62.3 Precipitate labor; A56.8 Sexually transmitted chlamydial infection of other sites; Z3A.33 33 weeks gestation of pregnancy; Z59.0 Homelessness; F12.10 Cannabis abuse, uncomplicated; Z71.6 Tobacco abuse counseling; Z23 Encounter for immunization
CPT/HCPCS: 36415; 76815; 80307; 80349; 81001; 84112; 84439; 84443; 84481; 85025; 85027; 85461; 86592; 86701; 86762; 86803; 86804; 86850; 86900; 86901; 87081; 87086; 87210; 87340; 87491; 87591; 88307; 90686; 90715; G0480; J0456; J0696; J0702; J2540; J2543; J2590; J2790; J3010; J3105; J3475; J3490; J7050; J7060; Q0144

== ENCOUNTER 2019-12-01 17:38 | Emergency (ER) | payer MEDICAID ==
--- NOTE | 2019-12-01 18:04 | ER Document Report ---
ED Medical Screen (RME) - General Stated Complaint: PSYCH EVAL Time Seen by Provider: 12/01/19 17:54 Mode of Arrival: Medic Information source: Law Enforcement, Emergency Med Personnel Notes: 29-year-old female presents emergency department via [facility] for reports of irrational behavior. According to the atomic physics teacher's deputy this female wandered approximately 3 miles from her home in [place] to across a field with 3 kids,a 3-year-old, 8-year-old and a . A man noticed her and asked if she needed help. He reported that she she seemed confused rambling. He did give her a ride back home to her [address] [place] [address]. [facility] was called. When they arrived they noticed that the child was having trouble breathing very disheveled and mother was rambling on. Mother and daughter were put into the ambulance. On the way to the hospital mother attempted to jump off the back of the ambulance. Children are at home with a friend. They are trying to contact the father who is a regional owner operator truck driver. I have greeted and performed a rapid initial assessment of this patient. A comprehensive ED assessment and evaluation of the patient, analysis of test results and completion of the medical decision making process will be conducted by additional ED providers. TRAVEL OUTSIDE OF THE [place] IN LAST 30 DAYS: No - Related Data Allergies/Adverse Reactions: No Known Allergies Allergy (Verified 09/09/19 21:39) Past Medical History Neurological Medical History: Reports: Hx Migraine Renal/ Medical History: Reports: Hx Kidney Stones. Denies: Hx Peritoneal Dialysis Past Surgical History: Reports: Hx Tonsillectomy - Immunizations Hx Diphtheria, Pertussis, Tetanus Vaccination: Yes
[2019-12-01 19:02] LABS: ABSOLUTE LYMPHOCYTES (AUTO) 2.4 10^3/uL (0.5-4.7); ABSOLUTE MONOCYTES (AUTO) 0.5 10^3/uL (0.1-1.4); ABSOLUTE NEUT (AUTO) 6.3 10^3/uL (1.7-8.2); BASOPHILS % (AUTO) 0.4 % (0-2); EOSINOPHILS % (AUTO) 0.3 % (0-6); HEMATOCRIT 41.2 % (36.0-47.0); HEMOGLOBIN 14.2 g/dL (12.0-15.5); LYMPHOCYTES % (AUTO) 25.9 % (13-45); MEAN CORPUSCULAR HGB CONC 34.6 g/dL (32.0-36.0); MEAN CORPUSCULAR VOLUME 90 fl (80-97); PLATELET COUNT 349 10^3/uL (150-450); RED CELL DISTRIBUTION WIDTH 16.3 % (11.5-14.0); SEGMENTED NEUTROPHILS % (AUTO) 68.4 % (42-78); TOTAL CELLS COUNTED % (AUTO) 100 %; WHITE BLOOD COUNT 9.2 10^3/uL (4.0-10.5)
[2019-12-01 19:02] LABS: ACETAMINOPHEN < 10 ug/mL (10-30); ALBUMIN 5.2 g/dL (3.5-5.0); ALCOHOL < 10 mg/dL (NONE DETECTED); ALKALINE PHOSPHATASE 69 U/L (38-126); ANION GAP 11 (5-19); ASPARTATE AMINO TRANSFERASE 25 U/L (14-36); BILIRUBIN,DIRECT 0.2 mg/dL (0.0-0.4); BILIRUBIN,TOTAL 1.3 mg/dL (0.2-1.3); BLOOD UREA NITROGEN 13 mg/dL (7-20); CALCIUM 10.5 mg/dL (8.4-10.2); CARBON DIOXIDE 24 mmol/L (22-30); CHLORIDE 105 mmol/L (98-107); GLUCOSE 112 mg/dL (75-110); POTASSIUM 4.2 mmol/L (3.6-5.0); SALICYLATE < 1.0 mg/dL (2.0-20.0); TOTAL PROTEIN 8.5 g/dL (6.3-8.2)
--- NOTE | 2019-12-01 20:18 | PSYCHOLOGICAL NOTE ---
Psych Note - Psych Note Date seen by psych provider: 12/01/19 Time seen by psych provider: 17:55 Psych Note: Reason for Consult: AMS Patient reports it has been a rough few years. She disclosed she lost the "love of my life..my soul mate...my everything." She report she cheated on her ex- and she can not fix it. Patient states she was walking to her aunts house because she was scared her child had a high fever. She states her aunt lives at [address] [place] [address] (clinician notes this is the patient's address). Patient continued to focus on her ex- and how much her "body and soul cries out for him." Patient is noted to not ask about her children. Patient denies mental health diagnosis and reports on taking vitamins. Patient is alert and oriented to person and place (time is questionable, she will not provide answers to verify orientation to time and circumstance). Mood is dsyphoric with congruent affect. She denies suicidal and homicidal ideation. Thought content is focused on ex-. Patient is able to demonstrate organized and linear thought processes however there is a significant delay to answers. attention and concentration is poor. insight judgment and impulse control is poor. Medication recommendations per [facility]'s contracted psychiatrist Dr. Adi WYNNE are as follows Haldol 5 mg twice daily Cogentin 1 mg daily Impression/Plan: patient is recommended for 24 hour petition for evaluation. It is currently unknown if the patient has a mental health history or substance abuse history. 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 She was found walking on the side of the road carrying her 4 year old. She presented confused and difficulty engaging in organized and linear conversation. Patient has left her 8 year old and 4 month old at home. Patient is very focused on a past relationship and has not asked about her children. Community paramedics, [facility] and DSS is involved. Dr. Arias was consulted on the care and management of this patient; attending physician is in agreement with recommendations and disposition.
[2019-12-01] MEDS ORDERED: BENZTROPINE MESYLATE 1 MG TABLET PO SCH (22:00)
--- NOTE | 2019-12-01 22:00 | ER Document Report ---
ED General - General Mode of Arrival: Medic TRAVEL OUTSIDE OF THE [place] IN LAST 30 DAYS: No <MANDO YUNG - Last Filed: 12/02/19 02:09> <IVONNE GRIMES - Last Filed: 12/02/19 14:29> <JI FIERROFide Saxena - Last Filed: 12/02/19 14:55> - General Chief Complaint: presents manic by [facility] Stated Complaint: PSYCH EVAL Time Seen by Provider: 12/01/19 17:54 Primary Care Provider: [facility] [Outside] - Follow up as needed - [facility] Notes: Patient is a 29-year-old female brought into the emergency department for evaluation under IVC. History is gathered from patient, EMS, police. Patient states to me that her daughter was sick. She gave her ibuprofen, walked with her other children towards her aunts house. At that point a passerby found him, offered her a ride, brought her back to the house. He was concerned because she was exhibiting "abnormal behavior" and her daughter seemed listless. Police came, called EMS for the daughter. While in route to the hospital for this 3-1/2-year-old to be evaluated, the patient's mother leapt out of the back of the ambulance. The patient cannot tell me why she did that. She denies any suicidal or homicidal ideation. She denies any visual or auditory hallucination. She states she has no history of psychiatric illness. When I asked her any more details about what is going on in her life, she states that she is sad because she cheated on her and he left. On further questioning this happened several years ago. She states she tried to contact her ex- because the child had a fever, was unable to get a hold of him, and panicked. The patient denies any psychiatry or therapy in the past. She is never had an inpatient psychiatric stay. According to the amusement park worker on scene, based on her erratic behavior and physical appearance, they did have concerns about the abuse of illicit substances. (MANDO YUNG) - Related Data Allergies/Adverse Reactions: No Known Allergies Allergy (Verified 09/09/19 21:39) Past Medical History - General Information source: Patient, Law Enforcement, Emergency Med Personnel - Social History Smoking Status: Current Every Day Smoker Frequency of alcohol use: Social Family History: Reviewed & Not Pertinent Patient has suicidal ideation: No Patient has homicidal ideation: No Neurological Medical History: Reports: Hx Migraine Renal/ Medical History: Reports: Hx Kidney Stones. Denies: Hx Peritoneal Dialysis Past Surgical History: Reports: Hx Tonsillectomy - Immunizations Hx Diphtheria, Pertussis, Tetanus Vaccination: Yes <MANDO YUNG - Last Filed: 12/02/19 02:09> Review of Systems - Review of Systems Neurological/Psychological: See HPI -: Yes All other systems reviewed and negative <MANDO YUNG - Last Filed: 12/02/19 02:09> Physical Exam <MANDO YUNG - Last Filed: 12/02/19 02:09> - Vital signs Vitals: Temp Pulse Resp BP Pulse Ox 97.9 F 116 H 20 138/9 H 97 12/01/19 18:04 12/01/19 18:04 12/01/19 18:04 12/01/19 18:04 12/01/19 18:04 - Notes Notes: This is a 29-year-old female who appears her stated age in no acute distress. She seems mildly paranoid, is guarded with some of her answers, but is cooperative with examiner. Vital signs reviewed, please refer to chart. Head is normocephalic, atraumatic. Pupils equal round, reactive to light. Neck is supple without meningismus. Heart is regular rate and rhythm. Lungs are clear to auscultation bilaterally. Abdomen is soft, nontender, normoactive bowel sounds throughout. Extremities without cyanosis, clubbing. Posterior calves are nontender. Peripheral pulses are equal. Skin is warm and dry. Patient is awake, alert, neurological exam is nonfocal. (MANDO YUNG) Course - Laboratory Result Diagrams: 12/01/19 18:45 12/01/19 18:20 <MANDO YUNG - Last Filed: 12/02/19 02:09> - Laboratory Result Diagrams: 12/01/19 18:45 12/01/19 18:20 <IVONNE GRIMES - Last Filed: 12/02/19 14:29> - Laboratory Result Diagrams: 12/01/19 18:45 12/01/19 18:20 <RONDA FIERRO - Last Filed: 12/02/19 14:55> - Re-evaluation Re-evalutation: 12/01/19 21:59 Patient presents to the emergency department for evaluation. She had laboratory investigations as ordered, and IVC paperwork was filed. The patient has not yet given a urine sample. This does actually strengthen the suspicion that she has in fact been under the influence of illicit drugs. Her laboratory investiga tions otherwise are unremarkable. psychosocial team has made medication recommendations, these were replaced. Otherwise, pending a normal urinalysis, patient will be medically cleared for psychosocial management. 12/02/19 02:04 Patient still unable to produce a urine for urinalysis and drug screen. She is stable. She has been laying on the bed comfortably, cooperative. Medication started per psychosocial suggestions. At this point the patient is medically cleared, awaiting further input. (MANDO YUNG) - Vital Signs Vital signs: Temp Pulse Resp BP Pulse Ox 97.9 F 81 15 102/71 99 12/02/19 08:45 12/02/19 08:45 12/02/19 08:45 12/02/19 08:45 12/02/19 08:45 - Laboratory Laboratory results interpreted by me: 12/01/19 12/01/19 12/02/19 18:20 18:45 12:27 RDW 16.3 H Glucose 112 H Calcium 10.5 H Total Protein 8.5 H Albumin 5.2 H Urine Protein 100 H Urine Ketones TRACE H Urine Urobilinogen 2.0 H Urine Ascorbic Acid 40 H Salicylates < 1.0 L Acetaminophen < 10 L - EKG Interpretation by Me Additional EKG results interpreted by me: 12/02/19 02:09 Sinus mechanism with a rate of 89 bpm. Normal axis and intervals. ST changes, diffuse, likely secondary to early repolarization. No old studies available for comparison. (MANDO YUNG) Discharge <MANDO YUNG - Last Filed: 12/02/19 02:09> <IVONNE GRIMES - Last Filed: 12/02/19 14:29> <RONDA FIERRO - Last Filed: 12/02/19 14:55> - Discharge Clinical Impression: Abnormal behavior Condition: Stable Disposition: HOME, SELF-CARE Instructions: Altered Mental Status ([facility]) Additional Instructions: You have been evaluated by both medical and behavioral health teams for odd behaviour/Altered Mental Status and have been deemed appropriate for discharge. While in the emergency department you received the following services: Medical screening and assessment, nursing services, dietary services, pharmacological services, one-on-one counseling and/or psychotherapy, environmental services, and continuous observation by a patient environmental health safety engineer. You have been provided a local resource list of area providers, including mobile crisis contact information. Altered Mental Status An altered mental status is a change in the normal functioning of the brain. This alteration of function can range from minor decreased brain function with some forgetfulness and confusion to complete loss of consciousness and coma. There are many possible causes of an altered mental status and include brain injuries such as trauma or strokes, problems with oxygen supply to the brain, fever and infections of the brain and/or elsewhere in the body, metabolic abnormalities such as low or high blood sugar, overdoses or excessive medication ingestion, and mental and psychiatric illnesses. Sometimes the altered mental status resolves and a definite cause is not determined. If a cause for your altered mental status was found, it has likely been corrected. Your evaluation has not shown any condition that requires that you be admitted to the hospital. It is believed that you are safe to leave and return to your home. If you have a return of your symptoms, you should return for re-evaluation. AT ANY TIME, IF YOUR SYMPTOMS CHANGE SIGNIFICANTLY OR WORSEN OR YOU DEVELOP NEW SYMPTOMS, RETURN TO THE EMERGENCY DEPARTMENT IMMEDIATELY FOR RE-EVALUATION. Referrals: [facility] [Outside] - Follow up as needed
[2019-12-01] MEDS: HALOPERIDOL 5 MG TABLET PO SCH (22:43)
[2019-12-02] MEDS: HALOPERIDOL 5 MG TABLET PO SCH (10:05)
--- NOTE | 2019-12-02 10:59 | EKG REPORT ---
SEVERITY:- ABNORMAL ECG - SINUS RHYTHM PROBABLE LEFT ATRIAL ABNORMALITY PROBABLE LEFT VENTRICULAR HYPERTROPHY : Confirmed by: Berny Ribeiro 02-Dec-2019 10:58:27
[2019-12-02 12:48] LABS: APPEARANCE,URINE SLIGHTLY-CLOUDY; BILIRUBIN,URINE NEGATIVE (NEGATIVE); COLOR,URINE AMBER; GLUCOSE, URINE NEGATIVE (NEGATIVE); KETONES,URINE TRACE mg/dL (NEGATIVE); LEUKOCYTE ESTERASE,URINE NEGATIVE (NEGATIVE); NITRITE,URINE NEGATIVE (NEGATIVE); PROTEIN,URINE 100 mg/dL (NEGATIVE); URINE SPECIFIC GRAVITY 1.025
[2019-12-02 13:00] LABS: URINE BARBITURATES SCREEN NEGATIVE; URINE BENZODIAZEPINES SCREEN NEGATIVE; URINE COCAINE SCREEN NEGATIVE; URINE MARIJUANA (THC) SCREEN NEGATIVE; URINE METHADONE SCREEN NEGATIVE; URINE PHENCYCLIDINE SCREEN NEGATIVE
--- NOTE | 2019-12-02 14:57 | ER Document Report ---
Doctor's Note Notes: 12/02/19 14:56 Progress note: Patient is a 29-year-old female who was seen here for an alteration in mental status and held under petition. She has been medically cleared. Her urine drug screen was inconclusive at this time. Pending amphetamine confirmation. The psychiatry team has evaluated her and rescinded her IVC. They advised she is stable and appropriate for discharge and outpatient follow-up. The patient has no complaints today. She denies any suicidal or homicidal ideations. Heart: Regular rate and rhythm, lungs: Clear to auscultation bilaterally.
[2019-12-02 15:53] VITALS: BP 132/86
--- NOTE | 2019-12-02 17:59 | PSYCHOLOGICAL NOTE ---
Psych Note - Psych Note Date seen by psych provider: 12/02/19 Time seen by psych provider: 14:00 Psych Note: Reason for Consult: AMS Check in conducted with patient: Patient is able to engage in organized and linear conversation. She reports that she has only been from her boyfriend for a few months. She confirms that it has been difficult knowing that she was the cause (patient cheated). She reports her children are with a friend of hers. She states she has no concerns with returning home. She denies a history of mental health and denies drug use/misuse. She reports all her medications she receives "over the counter." Patient denies any other concerns. Impression/Plan: Patient is recommended for rescind of IVC and is cleared from acute psychiatric services. At this time patient denies any thoughts of wanting to harm herself or others. Patient is not demonstrating any bizarre behaviors or behaviors indicating she is responding to internal stimuli. This is evidenced by patient's maintaining good eye contact, normal conversational sp eech, and organized linear thought processes. Patient denies both mental health and substance abuse history. There is concern that the patient has been using amphetamines or methamphetamine as toxicology screening indicates an interfering substance. Patient has been provided local resource list of area providers and is encouraged to abstain from using. Dr. Arias was consulted on the care and management of this patient; attending physician is in agreement with recommendations and disposition.
== END 2019-12-02 15:55 | disposition home or self-care (01) ==
LOC: ER 17:38
DX: F91.9 Conduct disorder, unspecified (principal); F17.200 Nicotine dependence, unspecified, uncomplicated; Z87.442 Personal history of urinary calculi
CPT/HCPCS: 93005; 99285; 36415; 80307 ×5; 84703; 85025; 80053; 81001; 93010; G0480; J3490 ×3

== ENCOUNTER 2019-12-12 18:02 | Emergency (ER) | payer MEDICAID, OTHER ==
[2019-12-12] MEDS ORDERED: MIDAZOLAM 2 MG/2 ML INJ IV ONE (18:20)
[2019-12-12] MEDS ORDERED: DIPH/PERTUSS(ACELL)/TETANUS VAC/PF 0.5 ML SYR (>=10YO) IM ONE (18:21)
[2019-12-12] MEDS ORDERED: LIDOCAINE 1%/EPINEPHRINE INJ 20 ML VIAL INJ ONE (18:21)
[2019-12-12 18:38] LABS: ABSOLUTE EOSINOPHILS # (AUTO) 0.1 10^3/uL (0.0-0.6); ABSOLUTE LYMPHOCYTES (AUTO) 2.6 10^3/uL (0.5-4.7); ABSOLUTE MONOCYTES (AUTO) 0.8 10^3/uL (0.1-1.4); ABSOLUTE NEUT (AUTO) 10.9 10^3/uL (1.7-8.2); BASOPHILS % (AUTO) 0.3 % (0-2); EOSINOPHILS % (AUTO) 0.6 % (0-6); HEMATOCRIT 39.7 % (36.0-47.0); HEMOGLOBIN 13.4 g/dL (12.0-15.5); LYMPHOCYTES % (AUTO) 18.3 % (13-45); MEAN CORPUSCULAR HEMOGLOBIN 30.7 pg (27.0-33.4); MEAN CORPUSCULAR HGB CONC 33.8 g/dL (32.0-36.0); MEAN CORPUSCULAR VOLUME 91 fl (80-97); MONOCYTES % (AUTO) 5.8 % (3-13); PLATELET COUNT 317 10^3/uL (150-450); RED BLOOD COUNT 4.36 10^6/uL (3.72-5.28); RED CELL DISTRIBUTION WIDTH 15.5 % (11.5-14.0); TOTAL CELLS COUNTED % (AUTO) 100 %; WHITE BLOOD COUNT 14.5 10^3/uL (4.0-10.5)
[2019-12-12 18:49] LABS: AMORPHOUS SEDIMENT,URINE TRACE /HPF; APPEARANCE,URINE CLOUDY; BILIRUBIN,URINE NEGATIVE (NEGATIVE); COLOR,URINE YELLOW; GLUCOSE, URINE NEGATIVE (NEGATIVE); KETONES,URINE NEGATIVE (NEGATIVE); LEUKOCYTE ESTERASE,URINE NEGATIVE (NEGATIVE); NITRITE,URINE NEGATIVE (NEGATIVE); PROTEIN,URINE >=500 mg/dL (NEGATIVE); URINE SPECIFIC GRAVITY 1.028
[2019-12-12 18:50] LABS: ALBUMIN 4.5 g/dL (3.5-5.0); ALKALINE PHOSPHATASE 52 U/L (38-126); ANION GAP 10 (5-19); ASPARTATE AMINO TRANSFERASE 36 U/L (14-36); BILIRUBIN,TOTAL 0.9 mg/dL (0.2-1.3); BLOOD UREA NITROGEN 17 mg/dL (7-20); CALCIUM 10.5 mg/dL (8.4-10.2); CARBON DIOXIDE 22 mmol/L (22-30); CHLORIDE 108 mmol/L (98-107); GLUCOSE 116 mg/dL (75-110); POTASSIUM 3.8 mmol/L (3.6-5.0); SALICYLATE 1.3 mg/dL (2.0-20.0); TOTAL PROTEIN 7.2 g/dL (6.3-8.2)
[2019-12-12 18:52] LABS: ACETAMINOPHEN < 10 ug/mL (10-30); ALCOHOL < 10 mg/dL (NONE DETECTED)
[2019-12-12 19:02] LABS: URINE BARBITURATES SCREEN NEGATIVE; URINE BENZODIAZEPINES SCREEN NEGATIVE; URINE COCAINE SCREEN NEGATIVE; URINE MARIJUANA (THC) SCREEN NEGATIVE; URINE METHADONE SCREEN NEGATIVE; URINE PHENCYCLIDINE SCREEN NEGATIVE
--- NOTE | 2019-12-12 19:12 | RADIOLOGY REPORT (SQ) ---
EXAM DESCRIPTION: PELVIS AP IMAGES COMPLETED DATE/TIME: 12/12/2019 6:56 pm REASON FOR STUDY: trauma COMPARISON: None. NUMBER OF VIEWS: One view TECHNIQUE: AP Pelvis LIMITATIONS: None. FINDINGS: MINERALIZATION: Normal. HIPS: No acute fracture or dislocation. No worrisome bone lesions. PELVIS AND SACRUM: No acute fracture or dislocation. No worrisome bone lesions. PUBIS AND ISCHIUM: No acute fracture. LOWER LUMBAR SPINE: No significant findings as visualized. SOFT TISSUES: No findings. OTHER: No other significant finding. IMPRESSION: NEGATIVE STUDY OF THE PELVIS. COMMENT: Pelvic fractures are often occult on plain radiographs. If strong clinical suspicion for f racture, recommend CT or MR. TECHNICAL DOCUMENTATION: JOB ID: [id number] 2010 [employer]- All Rights Reserved Reading location - IP/workstation name: [email or web address]
--- NOTE | 2019-12-12 19:12 | RADIOLOGY REPORT (SQ) ---
EXAM DESCRIPTION: CHEST SINGLE VIEW IMAGES COMPLETED DATE/TIME: 12/12/2019 6:56 pm REASON FOR STUDY: trauma COMPARISON: None. EXAM PARAMETERS: NUMBER OF VIEWS: One view. TECHNIQUE: Single frontal radiographic view of the chest acquired. RADIATION DOSE: NA LIMITATIONS: None. FINDINGS: LUNGS AND PLEURA: No opacities, masses or pneumothorax. No pleural effusion. MEDIASTINUM AND HILAR STRUCTURES: No masses. Contour normal. HEART AND VASCULAR STRUCTURES: Heart normal in size. Normal vasculature. BONES: No acute findings. HARDWARE: None in the chest. OTHER: No other significant finding. IMPRESSION: NO ACUTE RADIOGRAPHIC FINDING IN THE CHEST. TECHNICAL DOCUMENTATION: JOB ID: [id number] 2010 [employer]- All Rights Reserved Reading location - IP/workstation name: [email or web address]
--- NOTE | 2019-12-12 19:14 | RADIOLOGY REPORT (SQ) ---
EXAM DESCRIPTION: CT CERVICAL SPINE WITHOUT IMAGES COMPLETED DATE/TIME: 12/12/2019 6:58 pm REASON FOR STUDY: trauma COMPARISON: None. TECHNIQUE: Axial images acquired through the cervical spine without intravenous contrast. Images re viewed with lung, soft tissue and bone windows. Reconstructed coronal and sagittal MPR images review ed. Images stored on PACS. All CT scanners at this facility use dose modulation, iterative reconstruction, and/or weight based d osing when appropriate to reduce radiation dose to as low as reasonably achievable (ALARA). [facility]: Dose Right [facility]: CareDose [facility]: Dose Right [facility]: Teradose 4D [facility]: [employer] RADIATION DOSE: CT Rad equipment meets quality standard of care and radiation dose reduction techniq ues were employed. CTDIvol: 16.5 mGy. DLP: 309 mGy-cm. mGy. LIMITATIONS: None. FINDINGS: ALIGNMENT: Anatomic. MINERALIZATION: Normal. VERTEBRAL BODIES: No fractures or dislocation. DISCS: Degenerative disc disease C5-6 and C6-7. FACETS, LATERAL MASSES, POSTERIOR ELEMENTS: No fractures. No dislocation. No acute findings. HARDWARE: None in the spine. VISUALIZED RIBS: No fractures. LUNG APICES AND SOFT TISSUES: No significant or acute findings. OTHER: No other significant finding. IMPRESSION: NO ACUTE OR SIGNIFICANT FINDINGS IN THE CERVICAL SPINE. TECHNICAL DOCUMENTATION: JOB ID: [id number] Quality ID # [id number]: Final reports with documentation of one or more dose reduction techniques (e.g., Au tomated exposure control, adjustment of the mA and/or kV according to patient size, use of iterative reconstruction technique) 2010 [employer]- All Rights Reserved Reading location - IP/workstation name: [email or web address]
--- NOTE | 2019-12-12 19:16 | RADIOLOGY REPORT (SQ) ---
EXAM DESCRIPTION: CT FACIAL AREA WITHOUT IMAGES COMPLETED DATE/TIME: 12/12/2019 6:58 pm REASON FOR STUDY: trauma COMPARISON: None. TECHNIQUE: Noncontrasted images through the facial bones and orbits windowed for bone and soft tissu e. Additional coronal and sagittal reconstructed images reviewed. All images stored on PACS. All CT scanners at this facility use dose modulation, iterative reconstruction, and/or weight based d osing when appropriate to reduce radiation dose to as low as reasonably achievable (ALARA). [facility]: Dose Right [facility]: CareDose [facility]: Dose Right [facility]: Teradose 4D [facility]: [employer] RADIATION DOSE: CT Rad equipment meets quality standard of care and radiation dose reduction techniq ues were employed. CTDIvol: 30.4 mGy. DLP: 532 mGy-cm. mGy. LIMITATIONS: None. FINDINGS: FACIAL BONES: No fracture or bone lesion. ORBITS: Intact. No fracture. Symmetric intact globes and retroorbital soft tissues. PARANASAL SINUSES: Fluid in the right maxillary sinus. SOFT TISSUES: No mass or edema. INFERIOR BRAIN: Limited view. No acute findings. OTHER: No other significant finding. IMPRESSION: No acute fracture. Fluid in the right maxillary sinus. TECHNICAL DOCUMENTATION: JOB ID: [id number] Quality ID # [id number]: Final reports with documentation of one or more dose reduction techniques (e.g., Au tomated exposure control, adjustment of the mA and/or kV according to patient size, use of iterative reconstruction technique) 2010 [employer]- All Rights Reserved Reading location - IP/workstation name: [email or web address]
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
--- NOTE | 2019-12-12 19:30 | RADIOLOGY REPORT (SQ) ---
EXAM DESCRIPTION: CT HEAD WITHOUT IMAGES COMPLETED DATE/TIME: 12/12/2019 6:58 pm REASON FOR STUDY: trauma ams COMPARISON: None. TECHNIQUE: Axial images acquired through the brain without intravenous contrast. Images reviewed wi th bone, brain and subdural windows. Additional sagittal and coronal reconstructions were generated. Images stored on PACS. All CT scanners at this facility use dose modulation, iterative reconstruction, and/or weight based d osing when appropriate to reduce radiation dose to as low as reasonably achievable (ALARA). [facility]: Dose Right [facility]: CareDose [facility]: Dose Right [facility]: Teradose 4D [facility]: Smart Andigilog RADIATION DOSE: CT Rad equipment meets quality standard of care and radiation dose reduction techniq ues were employed. CTDIvol: 53.2 mGy. DLP: 964 mGy-cm. mGy. LIMITATIONS: None. FINDINGS: VENTRICLES: Normal size and contour. CEREBRUM: No masses. No hemorrhage. No midline shift. No evidence for acute infarction. Normal gra y/white matter differentiation. No areas of low density in the white matter. CEREBELLUM: No masses. No hemorrhage. No alteration of density. No evidence for acute infarction. EXTRAAXIAL SPACES: No fluid collections. No masses. ORBITS AND GLOBE: No intra- or extraconal masses. Normal contour of globe without masses. CALVARIUM: No fracture. PARANASAL SINUSES: Fluid right maxillary sinus. SOFT TISSUES: No mass or hematoma. OTHER: No other significant finding. IMPRESSION: NORMAL BRAIN CT WITHOUT CONTRAST. EVIDENCE OF ACUTE STROKE: NO. COMMENT: Quality ID # [id number]: Final reports with documentation of one or more dose reduction techniques (e.g., Automated exposure control, adjustment of the mA and/or kV according to patient size, use of iterative reconstruction technique) TECHNICAL DOCUMENTATION: JOB ID: [id number] 2010 [employer]- All Rights Reserved Reading location - IP/workstation name: [email or web address]
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
[2019-12-12] MEDS ORDERED: CHLORPROMAZINE HCL INJ 25 MG/1 ML AMPULE IV PRN (20:28)
[2019-12-12] MEDS ORDERED: BENZTROPINE MESYLATE INJ 2 MG/2 ML AMPULE IM STA (20:29)
--- NOTE | 2019-12-12 20:36 | EKG REPORT ---
SEVERITY:- ABNORMAL ECG - SINUS TACHYCARDIA BORDERLINE Q WAVE IN ANTEROLATERAL LEADS INFERIOR Q WAVES, PROBABLY NORMAL VARIATION LVH : Confirmed by: George Tapia MD 12-Dec-2019 20:35:34
[2019-12-12] MEDS ORDERED: BACITRACIN OPH OINT 3.5 GM EXT STA (21:24)
[2019-12-13] MEDS ORDERED: BENZTROPINE MESYLATE INJ 2 MG/2 ML AMPULE IM ONE (14:33)
[2019-12-13] MEDS ORDERED: CHLORPROMAZINE HCL INJ 25 MG/1 ML AMPULE IM ONE (14:36)
--- NOTE | 2019-12-13 14:40 | ER Document Report ---
Doctor's Note Notes: 12/13/19 14:39 Patient's chart and medications were reviewed. This time the patient does not really want to engage. Medication recommendations made by the behavioral health team today are Thorazine 50 mg IM now and every 6 hours. Cogentin 1 mg IM daily. Patient will remain on IVC papers. She is being seen again by behavioral health team at this time.
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
[2019-12-13] MEDS ORDERED: CHLORPROMAZINE HCL INJ 25 MG/1 ML AMPULE IM SCH (19:00)
[2019-12-13 19:30] VITALS: BP 107/78
[2019-12-14] MEDS ORDERED: BENZTROPINE MESYLATE INJ 2 MG/2 ML AMPULE IM SCH (10:00)
== END 2019-12-13 19:30 ==
LOC: ER 18:02
DX: R41.82 Altered mental status, unspecified (principal); S20.319A Abrasion of unspecified front wall of thorax, initial encounter; S00.81XA Abrasion of other part of head, initial encounter; S81.812A Laceration without foreign body, left lower leg, initial encounter; X58.XXXA Exposure to other specified factors, initial encounter; Z87.442 Personal history of urinary calculi; Z23 Encounter for immunization
CPT/HCPCS: 12001; 93005; 99285; 96372; 96374; 36415; 80307 ×5; 85025; 80053; 81001; 71045; 72170; 70450; 70486; 72125; 90715; 93010; G0480; J2250; J0515 ×2; J3230 ×2; J3490 ×2

== ENCOUNTER 2019-12-29 20:37 | Emergency (ER) | payer MEDICAID ==
[2019-12-29] MEDS ORDERED: LORAZEPAM INJ 2 MG/1 ML VIAL IM ONE (20:56)
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
[2019-12-29 21:10] LABS: ABSOLUTE BASOPHILS # (AUTO) 0.1 10^3/uL (0.0-0.2); ABSOLUTE MONOCYTES (AUTO) 0.8 10^3/uL (0.1-1.4); ABSOLUTE NEUT (AUTO) 16.4 10^3/uL (1.7-8.2); BASOPHILS % (AUTO) 0.3 % (0-2); EOSINOPHILS % (AUTO) 0.2 % (0-6); HEMATOCRIT 39.5 % (36.0-47.0); HEMOGLOBIN 13.6 g/dL (12.0-15.5); LYMPHOCYTES % (AUTO) 10.5 % (13-45); MEAN CORPUSCULAR HGB CONC 34.3 g/dL (32.0-36.0); MEAN CORPUSCULAR VOLUME 90 fl (80-97); PLATELET COUNT 438 10^3/uL (150-450); RED BLOOD COUNT 4.38 10^6/uL (3.72-5.28); TOTAL CELLS COUNTED % (AUTO) 100 %; WHITE BLOOD COUNT 19.3 10^3/uL (4.0-10.5)
[2019-12-29 21:39] LABS: ALBUMIN 4.5 g/dL (3.5-5.0); ALKALINE PHOSPHATASE 71 U/L (38-126); ANION GAP 12 (5-19); ASPARTATE AMINO TRANSFERASE 32 U/L (14-36); BILIRUBIN,TOTAL 0.7 mg/dL (0.2-1.3); BLOOD UREA NITROGEN 18 mg/dL (7-20); CALCIUM 10.1 mg/dL (8.4-10.2); CARBON DIOXIDE 21 mmol/L (22-30); CHLORIDE 106 mmol/L (98-107); GLUCOSE 120 mg/dL (75-110); POTASSIUM 4.1 mmol/L (3.6-5.0); TOTAL PROTEIN 7.1 g/dL (6.3-8.2)
[2019-12-29 21:40] LABS: ACETAMINOPHEN < 10 ug/mL (10-30); ALCOHOL < 10 mg/dL (NONE DETECTED); SALICYLATE < 1.0 mg/dL (2.0-20.0)
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
[2019-12-30 04:42] LABS: APPEARANCE,URINE TURBID; BILIRUBIN,URINE NEGATIVE (NEGATIVE); COLOR,URINE AMBER; GLUCOSE, URINE NEGATIVE (NEGATIVE); KETONES,URINE NEGATIVE (NEGATIVE); LEUKOCYTE ESTERASE,URINE NEGATIVE (NEGATIVE); NITRITE,URINE NEGATIVE (NEGATIVE); PROTEIN,URINE 30 mg/dL (NEGATIVE); URINE SPECIFIC GRAVITY 1.031
[2019-12-30 05:01] LABS: URINE BARBITURATES SCREEN NEGATIVE; URINE BENZODIAZEPINES SCREEN NEGATIVE; URINE COCAINE SCREEN NEGATIVE; URINE MARIJUANA (THC) SCREEN NEGATIVE; URINE METHADONE SCREEN NEGATIVE; URINE PHENCYCLIDINE SCREEN NEGATIVE
--- NOTE | 2019-12-30 10:18 | EKG REPORT ---
SEVERITY:- BORDERLINE ECG - SINUS TACHYCARDIA PROBABLE LEFT ATRIAL ABNORMALITY : Confirmed by: Mora Pisano MD 30-Dec-2019 10:17:47
--- NOTE | 2019-12-30 11:57 | ER Document Report ---
Doctor's Note Notes: 12/30/19 11:56 Patient sleeping, will continue to monitor. 12/30/19 14:54 Constitutional: Nontoxic appearance, no acute distress Eyes: Nonicteric, extraocular movements intact, sclera clear Cardiovascular: No JVD Respiratory: Nonlabored breathing, no use of accessory muscles, no tachypnea Gastrointestinal: Abdomen not distended Muculoskeletal: Moves all extremities well Skin: Normal color Neuro: Awake alert oriented 12/30/19 20:00 Mental health team states that patient needs a repeat CBC prior to [facility] excepting patient for transfer at this time. Repeat draw is pending at this time.
[2019-12-30 19:48] LABS: ABSOLUTE EOSINOPHILS # (AUTO) 0.1 10^3/uL (0.0-0.6); ABSOLUTE LYMPHOCYTES (AUTO) 3.9 10^3/uL (0.5-4.7); ABSOLUTE MONOCYTES (AUTO) 0.7 10^3/uL (0.1-1.4); TOTAL CELLS COUNTED % (AUTO) 100 %
[2019-12-30 20:01] LABS: ABSOLUTE NEUT (AUTO) 5.6 10^3/uL (1.7-8.2); BASOPHILS % (AUTO) 0.5 % (0-2); EOSINOPHILS % (AUTO) 0.9 % (0-6); HEMATOCRIT 37.3 % (36.0-47.0); HEMOGLOBIN 12.8 g/dL (12.0-15.5); LYMPHOCYTES % (AUTO) 37.6 % (13-45); MEAN CORPUSCULAR HEMOGLOBIN 31.2 pg (27.0-33.4); MEAN CORPUSCULAR HGB CONC 34.2 g/dL (32.0-36.0); MEAN CORPUSCULAR VOLUME 91 fl (80-97); MONOCYTES % (AUTO) 6.7 % (3-13); PLATELET COUNT 361 10^3/uL (150-450); RED CELL DISTRIBUTION WIDTH 15.1 % (11.5-14.0); SEGMENTED NEUTROPHILS % (AUTO) 54.3 % (42-78); WHITE BLOOD COUNT 10.4 10^3/uL (4.0-10.5)
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
[2019-12-30 22:18] VITALS: BP 132/87
== END 2019-12-30 23:05 ==
LOC: ER 20:37
DX: F15.10 Other stimulant abuse, uncomplicated (principal); Z87.442 Personal history of urinary calculi
CPT/HCPCS: 93005; 99285; 96372; 36415; 80307 ×4; 84703; 85025; 80053; 81001; 93010; J2060